=== PATIENT | female | born 1970 | race Caucasian/White ===

== ENCOUNTER → 2017-12-27 | Day surgery (SDC) | payer OTHER ==
--- NOTE | 2017-12-27 12:56 | OP ---
DATE OF OPERATION: 12/27/2017 PREOPERATIVE DIAGNOSIS: Abnormal right mammography, POSTOPERATIVE DIAGNOSIS: Abnormal right mammography. PROCEDURE: Right stereotactic needle biopsy with clips. SURGEON: Jamilah Champagne MD ANESTHESIA: Local. COMPLICATIONS: None. This was a sterile procedure. INDICATIONS FOR PROCEDURE: Patient presented with a screening mammography that noted area of microcalcifications in the upper outer posterior right breast. The recommendation was needle biopsy. The procedure was discussed with all her questions answered. PROCEDURE IN DETAIL: Patient was brought to [facility]. Dariusz Aguirre, laid prone on the OR table. Using several different approaches, finally the cranial approach was used to target these calcifications which seemed to be in the correct area, and there was one other dense calcification than we could originally see in the stereo . A target was chosen, a positive stroke margin, and Betadine and 1% lidocaine was used, and a 10-gauge Suros device was inserted into the breast. Several cores from this area were taken. On specimen radiograph, however, I did not see any calcifications. This was still sent to Pathology for permanent section. I tried to take another x-ray of this area, and it was really difficult to see whether there were any calcifications left or not. So, I will wait to see what the pathology shows prior to discussing possible wide local excision of this area of microcalcifications. This was discussed with the patient. She understood. I will see her back in 1 week in the office and discuss this further. She tolerated the procedure well and left the breast imaging center in good condition. JAMILAH CHAMPAGNE M.D. [id number]
--- NOTE | 2017-12-29 10:53 | PATH ---
Surgical Pathology Report Patient Name: RACHEL LA [facility]. Rec. #: [id number] /Age/Gender: 1970 (Age: 47) / F Account: [id number] Location: [facility] Taken: 12/27/2017 Received: 12/27/2017 Reported: 12/29/2017 Physicians: Shasta Rubio M.D. Specimen(s) Received RIGHT BREAST SPECIMEN WITHOUT CALCIFICATIONS Clinical History Non-palpable lesion Stereotactic biopsy of right breast calcifications Final Diagnosis BREAST, RIGHT, WITHOUT CALCIFICATIONS, STEREOTACTIC BIOPSY: BENIGN BREAST TISSUE. Electronically Signed Chelsea Em M.D. Gross Description Received in formalin, labeled "right breast without calcifications" is a 3.5 x 1.5 x 0.2 cm aggregate of yellow-cisse soft tissue. Entirely submitted in two cassettes. Time to formalin fixation: 4 minutes Total formalin fixation time: Approximately 7 hours [facility]/12/27/2017
== END | disposition home or self-care (01) ==
LOC: FMAMMOTONE 10:53
PROVIDERS: ATTEND Surgery
PROC: 0HBT3ZX Excision of Right Breast, Percutaneous Approach, Diagnostic (ICD-10-PCS; principal; 2017-12-27)
DX: R92.8 Other abnormal and inconclusive findings on diagnostic imaging of breast (principal)
CPT/HCPCS: 19081; 87899; 88305-TC; A4648